=== PATIENT | female | born 1990 | race Caucasian/White ===

== ENCOUNTER 2025-08-03 11:58 | Outpatient (CLI) | payer SELFPAY | END 2025-08-03 11:59 | disposition home or self-care (01) | PROVIDERS: Visit Provider Registered Nurse | DX: F12.91 Cannabis use, unspecified, in remission (principal); Z34.92 Encounter for supervision of normal pregnancy, unspecified, second trimester | CPT/HCPCS: 80306; 87491; 87591 ==